=== PATIENT | female | born 1995 | race Caucasian/White ===

== ENCOUNTER 2017-11-02 22:16 | Outpatient (CLI) | payer OTHER ==
[2017-11-02 23:01] LABS: AMORPHOUS SEDIMENT,URINE TRACE /HPF; APPEARANCE,URINE SLIGHTLY-CLOUDY; BILIRUBIN,URINE NEGATIVE (NEGATIVE); GLUCOSE, URINE 150 mg/dL (NEGATIVE); KETONES,URINE NEGATIVE (NEGATIVE); LEUKOCYTE ESTERASE,URINE TRACE (NEGATIVE); NITRITE,URINE NEGATIVE (NEGATIVE); PROTEIN,URINE NEGATIVE (NEGATIVE); URINE SPECIFIC GRAVITY 1.011
[2017-11-02 23:07] LABS: URINE BARBITURATES SCREEN NEGATIVE; URINE METHADONE SCREEN NEGATIVE; URINE OPIATES LOW NEGATIVE; URINE PHENCYCLIDINE SCREEN NEGATIVE
--- NOTE | 2017-11-03 00:26 | Non Stress Test Report ---
Non Stress Test Datetime Report Generated by CPN: 11/03/2017 00:26 DEMOGRAPHIC Test Number: 1 EGA NST: 32.5 INDICATION Indication for Study: Ordered by Provider URINE RESULTS Urine Protein, NST: Negative Urine Ketones - NST: Negative Urine Glucose - NST: Positive Urine Blood - NST: Negative MONITORING Monitor Explained: Monitor Explained; Test Explained; Patient Verbalized Understanding Time on Monitor: 11/02/2017 22:34 Time off Monitor: 11/03/2017 00:09 NST Duration: 95 NST INTERVENTIONS NST Interventions: PO Hydration; Reposition Patient Physician Notified NST: Dr. Denny BABY A: [id number] BABY A Movement : Present Contraction Frequency : none FHR Baseline : 140 Accelerations : Prolonged Decelerations : None Variability : Moderate 6-25bpm NST Review: Meets Criteria for Reactive NST NST Review and Verified By : Krzysztof Laguerre RN NST Results: Reactive NST REPORT Report Trigger: Send Report
== END 2017-11-03 00:17 | disposition home or self-care (01) ==
LOC: LC 22:16
PROVIDERS: ATTEND Obstetrics & Gynecology Gynecology
PROC: 4A1HXCZ Monitoring of Products of Conception, Cardiac Rate, External Approach (ICD-10-PCS; principal; 2017-11-02)
DX: O76 Abnormality in fetal heart rate and rhythm complicating labor and delivery (principal); O99.89 Other specified diseases and conditions complicating pregnancy, childbirth and the puerperium; H53.8 Other visual disturbances; R51 Headache; Z3A.32 32 weeks gestation of pregnancy
CPT/HCPCS: 59025; 80307; 81001; 82962

== ENCOUNTER 2017-11-05 13:42 | Outpatient (CLI) | payer OTHER ==
[2017-11-05 14:18] LABS: APPEARANCE,URINE SLIGHTLY-CLOUDY; BILIRUBIN,URINE NEGATIVE (NEGATIVE); GLUCOSE, URINE NEGATIVE (NEGATIVE); KETONES,URINE NEGATIVE (NEGATIVE); LEUKOCYTE ESTERASE,URINE TRACE (NEGATIVE); NITRITE,URINE NEGATIVE (NEGATIVE); PROTEIN,URINE NEGATIVE (NEGATIVE); URINE SPECIFIC GRAVITY 1.009; UROBILINOGEN,URINE NEGATIVE mg/dL (<2.0)
[2017-11-05 14:28] LABS: AMNISURE (ROM) NEGATIVE (NEGATIVE)
[2017-11-05 14:36] LABS: URINE BARBITURATES SCREEN NEGATIVE; URINE METHADONE SCREEN NEGATIVE; URINE OPIATES LOW NEGATIVE; URINE PHENCYCLIDINE SCREEN NEGATIVE
--- NOTE | 2017-11-05 15:08 | Non Stress Test Report ---
Non Stress Test Datetime Report Generated by CPN: 11/05/2017 15:07 DEMOGRAPHIC EGA NST: 33.1 INDICATION Indication for Study: Ordered by Provider MONITORING Monitor Explained: Monitor Explained; Test Explained; Patient Verbalized Understanding Time on Monitor: 11/05/2017 13:58 Time off Monitor: 11/05/2017 14:47 NST Duration: 49 NST INTERVENTIONS NST Interventions: None Physician Notified NST: Dr Joaquin BABY A: [id number] BABY A Movement : Present Contraction Frequency : denies FHR Baseline : 145 Accelerations : 15X15 Decelerations : None Variability : Moderate 6-25bpm NST Review: Meets Criteria for Reactive NST NST Review and Verified By : Vika Rawls RN NST Results: Reactive NST REPORT Report Trigger: Send Report
== END 2017-11-05 14:53 | disposition home or self-care (01) ==
LOC: LC 13:42
PROVIDERS: ATTEND Obstetrics & Gynecology
PROC: 4A1HXCZ Monitoring of Products of Conception, Cardiac Rate, External Approach (ICD-10-PCS; principal; 2017-11-05)
DX: O47.03 False labor before 37 completed weeks of gestation, third trimester (principal); Z3A.33 33 weeks gestation of pregnancy
CPT/HCPCS: 80307; 81001; 84112

== ENCOUNTER 2017-11-08 21:11 | Observation (INO) | payer OTHER ==
[2017-11-08 21:55] LABS: AMORPHOUS SEDIMENT,URINE TRACE /HPF; APPEARANCE,URINE SLIGHTLY-CLOUDY; BILIRUBIN,URINE NEGATIVE (NEGATIVE); GLUCOSE, URINE NEGATIVE (NEGATIVE); KETONES,URINE 20 mg/dL (NEGATIVE); LEUKOCYTE ESTERASE,URINE MODERATE (NEGATIVE); NITRITE,URINE NEGATIVE (NEGATIVE); PROTEIN,URINE NEGATIVE (NEGATIVE); URINE SPECIFIC GRAVITY 1.011
[2017-11-08 22:07] LABS: URINE BARBITURATES SCREEN NEGATIVE; URINE METHADONE SCREEN NEGATIVE; URINE OPIATES LOW NEGATIVE; URINE PHENCYCLIDINE SCREEN NEGATIVE
[2017-11-08] MEDS: RINGERS SOLUTION,LACTATED 1,000 ML IV PRN ×2 (22:33→22:34)
[2017-11-08] MEDS ORDERED: PENICILLIN G-K 5 MILLION UNIT VIAL ONE (22:52)
[2017-11-08] MEDS ORDERED: BETAMET ACET/BETAMET NA INJ 6 MG/1 ML ONE (22:52)
[2017-11-08] MEDS ORDERED: PENICILLIN G-K 5 MILLION UNIT VIAL IV ONE (23:00)
[2017-11-08 23:09] LABS: ABSOLUTE EOSINOPHILS # (AUTO) 0.1 10^3/uL (0.0-0.6); ABSOLUTE LYMPHOCYTES (AUTO) 1.8 10^3/uL (0.5-4.7); ABSOLUTE MONOCYTES (AUTO) 0.5 10^3/uL (0.1-1.4); ABSOLUTE NEUT (AUTO) 10.5 10^3/uL (1.7-8.2); BASOPHILS % (AUTO) 0.2 % (0-2); EOSINOPHILS % (AUTO) 0.4 % (0-6); HEMATOCRIT 27.9 % (36.0-47.0); HEMOGLOBIN 9.4 g/dL (12.0-15.5); HGB HCT DIFFERENCE 0.3; LYMPHOCYTES % (AUTO) 13.9 % (13-45); MEAN CORPUSCULAR HEMOGLOBIN 27.6 pg (27.0-33.4); MEAN CORPUSCULAR HGB CONC 33.8 g/dL (32.0-36.0); MEAN CORPUSCULAR VOLUME 82 fl (80-97); MONOCYTES % (AUTO) 4.2 % (3-13); RED BLOOD COUNT 3.41 10^6/uL (3.72-5.28); RED CELL DISTRIBUTION WIDTH 14.7 % (11.5-14.0); SEGMENTED NEUTROPHILS % (AUTO) 81.3 % (42-78); WHITE BLOOD COUNT 12.9 10^3/uL (4.0-10.5)
[2017-11-08] MEDS ORDERED: PENICILLIN G-K 5 MILLION UNIT VIAL IV PRN ×2 (23:29→23:30)
[2017-11-09] MEDS ORDERED: MAGNESIUM SULFATE 4 GM/100 ML RTUPB IV ONE (00:37)
[2017-11-09] MEDS ORDERED: MAGNESIUM SULFATE 20 GM/500 ML RTUINJ IV PRN (00:44)
[2017-11-09] MEDS ORDERED: PENICILLIN G-K 5 MILLION UNIT VIAL ONE ×2 (02:56→06:46)
[2017-11-09] MEDS ORDERED: PENICILLIN G-K 5 MILLION UNIT VIAL IV SCH (03:00)
[2017-11-09] MEDS ORDERED: MAG HYDROX/AL HYDROX/SIMETH SUSP 30 ML UDCUP ONE (04:05)
[2017-11-09 04:13] LABS: AMNISURE (ROM) NEGATIVE (NEGATIVE)
[2017-11-09] MEDS: RINGERS SOLUTION,LACTATED 1,000 ML IV PRN (05:01)
[2017-11-09] MEDS: BETAMET ACET/BETAMET NA INJ 6 MG/1 ML IM SCH ×2 (07:00→23:18)
--- NOTE | 2017-11-09 08:43 | Admission Physical ---
Datetime Report Generated by CPN: 11/09/2017 08:42 CURRENT ADMISSION Chief Complaint: Uterine Contractions Indication for Induction: Not Applicable Indication for Induction: , Intrauterine Admit Plan: Initiate Labor Protocol; Observation/Evaluation ALLERGIES Medication Allergies: No Medication Allergies: No Known Allergies (11/08/2017) Medication Allergies: No Known Allergies (11/02/2017) Latex: No Latex Allergies Food Allergies: none Environmental Allergies: none OBSTETRICAL HISTORY EDC: 12/23/2017 00:00 : 4 Para: 2 Term: 1 : 1 SAB: 1 IAB: 0 Ectopic: 0 Livin Cesareans: 0 VBACs: 0 Multiple Births: 0 Gestational Diabetes: Yes Rh Sensitization: No Incompetent Cervix: No TALA: No Infertility: No ART Treatment: No Uterine Anomaly: No IUGR: No Hx Previous C/S: No Macrosomia: No Hx Loss/Stillborn: No PIH: No Hx : No Placenta Previa/Abruption: No Depression/PP Depression: No PTL/PROM: Yes Post Hemorrhage: No Current Procedures: Ultrasound Obstetrical History Comments: G1-09/01/13 @38wks female 6lbs 7oz G2-01/01/15 @ 35wks female 6lbs 6oz PTL, heavy bleeding G3-12/2016 SAB @ 8 wks G4-Current GDM on glyburide takes P-17 injections (Annotations: Data stored by N on behalf of user) SEE RECORDS Alcohol: No Marijuana : No Cocaine: No Other Illicit Drugs: No Cigarettes: Never Smoker. 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 Surgery: No Heart Disease: No Hosp/Surgery: Yes Autoimmune Disorder: No Anesthetic Complications: No Kidney Disease: No Abnormal Pap Smear: Yes Neuro/Epilepsy: No Psychiatric Disorders: No Other Medical Diseases: No Hepatitis/Liver Disease: No Significant Family History: No Varicosities/Phlebitis: No Trauma/Violence : No Thyroid Dysfunction: Yes Medical History Comments: Gallbladder-2013; Childbirth x 2; GDM on glyburide; Abnormal pap-LGSIL; Low TSH-sent to endocrinology for evaluation INFECTIOUS HISTORY Gonorrhea: No Genital Herpes: Yes Chlamydia: No Tuberculosis: No Syphilis: No Hepatitis: No HIV/AIDS Exposure: No Rash or Viral Illness: No HPV: Yes Infectious History Comments: Abnormal pap-LGSIL; 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 PHYSICAL EXAM General: Normal HEENT: Normal Neurologic: Normal Thyroid: Normal Heart: Normal Lungs: Normal Breast: Deferred Back: Normal Abdomen: Normal Genitourinary Exam: Normal Extremities: Normal DTRs: Normal Pelvic Type: Adequate Physical Exam Comments: 1 cm thick VAGINAL EXAM Dilatation: 1 Effacement: 25% Station: -2 MEMBRANES Membranes: Intact FETUS A EGA: 33.4 Monitoring: External US Decelerations: None Admit Comment: pt presented with irregular contraction.. History of SROM at 35 weeks with pitocin augmentation and is getting 17P? pt also has a history of delivering at 38 weeks. Pt on glyburide but is not well controlled. PLANS FOR LABOR AND DELIVERY Labor and Delivery: None Pain Management: Epidural Feeding Preference: Breast Circumcision: Yes INFORMED CONSENT Signature: with User ID: [email or web address]
[2017-11-09] MEDS ORDERED: GLYBURIDE 5 MG TABLET ONE (20:13)
[2017-11-09] MEDS ORDERED: GLYBURIDE 2.5 MG TABLET PO ONE (21:00)
[2017-11-09 22:26] LABS: AMNISURE (ROM) NEGATIVE (NEGATIVE)
--- NOTE | 2017-11-09 22:44 | L&D Progress Notes ---
PROGRESS NOTES Datetime Report Generated by CPN: 11/09/2017 22:44 PROGRESS NOTE Impression: Reactive Non Stress Test Procedures: Sterile Speculum Exam Plan: Continue Present Management Informed Consent Obtained: Risks, Benefits and Alternatives Discussed Vital Signs : Reviewed Comment: this am at 0300. THis was minimal change from . Pt was admitted last evening - [facility] [place] for neuroprotection and BMZ. Upon my arrival this am - uterus quiesent and magnesium stopped, PCN stopped and await BMZ complete. Approx 1 hour ago - pt reported a gush and Amnisure done - appeared to urine. Amnsiure is negative. Amnisure also negative at 0300. Pt reporting another gush. Will perform fern and amnisure again then perform US to verify JAYDA/SDP. NO e/o labor at this time. Patient is aware that plan was to discharge her at 2300 when last BMZ was due. Pt [place] - pt advised that would not recommend travel since she was admitted for ctx. VAGINAL EXAM Dilatation: 1 Effacement: 25% Station: -2 MEMBRANES Membranes: Intact SIGNATURE SIGNATURE: [id number];[id number] SIGNATURE: [id number] SIGNATURE: [id number] Signature: with User ID: [email or web address]
[2017-11-09] MEDS ORDERED: BETAMET ACET/BETAMET NA INJ 6 MG/1 ML ONE (22:54)
[2017-11-09 23:36] LABS: AMNISURE (ROM) NEGATIVE (NEGATIVE)
--- NOTE | 2017-11-10 00:06 | RADIOLOGY REPORT (SQ) ---
EXAM DESCRIPTION: U/S OB LIMITED CLINICAL HISTORY: 22 years, Female, JAYDA/SDP, presentation COMPARISON: None. LIMITATIONS/technique: Targeted exam for for requested obstetrical parameters. FINDINGS: JAYDA: 7.3 cm. Clear fluid. Deepest pocket measures 4.5 cm. position: Vertex. heart rate: 155 bpm. IMPRESSION: Targeted exam for for requested obstetrical parameters. 2011 [facility] [employer]- All Rights Reserved
--- NOTE | 2017-11-10 00:14 | PDOC DISCHARGE SUMMARY ---
General - Admit/Disc Date/PCP Admission Date/Primary Care Provider: 11/08/17 22:44 KACEY WU MD Discharge Date: 11/09/17 - Discharge Diagnosis (1) contractions Is this a current diagnosis for this admission?: Yes Summary: Patient came in last evening for contractions at 33wks and cvx -3 and then several hours later /-2. Patient thought she broke her water on several occasions. 3 amnisures and Fern as well as US done - no e/o SROM. No pooling or valsalva on exam. No contractions since 0800 and magneiusm and pitocin and PCN discontinued this am due to contractions ceased. Patient only had a rare ctx since that time. - Additional Information Home Medications: Glyburide 2.5 mg PO BID 11/02/17 Vit/Iron Fum/Folic AC [ Tablet] 1 each PO DAILY 11/02/17 History of Present Illness Patient complains of: contractions. History of Present Illness: MRACIO GARCIA is a 22 year old female came in last evening for contractions at 33wks and cvx -3 and then several hours later /-2. Patient thought she broke her water on several occasions. 3 amnisures and Fern as well as US done - no e/o SROM. No pooling or valsalva on exam. No contractions since 0800 and magneiusm and pitocin and PCN discontinued this am due to contractions ceased. Patient only had a rare ctx since that time. Hospital Course Hospital Course: Patient came in last evening for contractions at 33wks and cvx -3 and then several hours later /-2. Patient thought she broke her water on several occasions. 3 amnisures and Fern as well as US done - no e/o SROM. No pooling or valsalva on exam. No contractions since 0800 and magneiusm and pitocin and PCN discontinued this am due to contractions ceased. Patient only had a rare ctx since that time. Physical Exam - Physical Exam Vital Signs: Intake & Output 11/08/17 11/09/17 11/10/17 06:59 06:59 06:59 Weight 76.05 kg General appearance: PRESENT: no acute distress, well-developed, well-nourished Head exam: PRESENT: atraumatic, normocephalic Respiratory exam: PRESENT: clear to auscultation brandie, symmetrical, unlabored Cardiovascular exam: PRESENT: RRR. ABSENT: diastolic murmur, rubs, systolic murmur Pulses: PRESENT: normal dorsalis pedis pul, +2 pedal pulses bilateral Vascular exam: PRESENT: normal capillary refill GI/Abdominal exam: PRESENT: normal bowel sounds, soft. ABSENT: rebound, tenderness Rectal exam: PRESENT: deferred Extremities exam: PRESENT: full ROM. ABSENT: calf tenderness, clubbing, pedal edema Neurological exam: PRESENT: alert, awake, oriented to person, oriented to place , oriented to time, oriented to situation, CN II-XII grossly intact. ABSENT: motor sensory deficit Psychiatric exam: PRESENT: appropriate affect, normal mood. ABSENT: homicidal ideation, suicidal ideation Skin exam: PRESENT: dry, intact, warm. ABSENT: cyanosis, rash Result Laboratory Results: 11/08/17 22:53 11/08/17 22:53 Blood Type O POSITIVE Antibody Screen NEGATIVE Status: Image reviewed by me Plan Discharge Plan: Discharge to home. Time Spent: Greater than 30 Minutes
== END 2017-11-10 00:13 | disposition home or self-care (01) ==
LOC: LC 21:11 → LR 22:44
PROVIDERS: ADMIT Obstetrics & Gynecology Gynecology; ATTEND Obstetrics & Gynecology Gynecology
PROC: 4A0HXCZ Measurement of Products of Conception, Cardiac Rate, External Approach (ICD-10-PCS; principal; 2017-11-10)
PROC: 3E0233Z Introduction of Anti-inflammatory into Muscle, Percutaneous Approach (ICD-10-PCS; 2017-11-10)
DX: O60.03 Preterm labor without delivery, third trimester (principal); O24.415 Gestational diabetes mellitus in pregnancy, controlled by oral hypoglycemic drugs; O09.213 Supervision of pregnancy with history of pre-term labor, third trimester; Z3A.33 33 weeks gestation of pregnancy; Z86.19 Personal history of other infectious and parasitic diseases
CPT/HCPCS: 59025; 96372 ×2; 84112; 86900; 86901; 36415; 86850; 82962 ×2; 85025; 86592; 81001; 87081; 80307; 87491; 87591; 76815; Q0114; J3475; J3490 ×2; J2540 ×2; J0702

== ENCOUNTER 2017-11-23 15:09 | Outpatient (CLI) | payer OTHER ==
--- NOTE | 2017-11-23 15:31 | Non Stress Test Report ---
Non Stress Test Datetime Report Generated by CPN: 11/23/2017 15:30 DEMOGRAPHIC EGA NST: 33.5 INDICATION Indication for Study: Ordered by Provider MONITORING Monitor Explained: Monitor Explained; Test Explained; Patient Verbalized Understanding Time on Monitor: 11/09/2017 19:50 Time off Monitor: 11/09/2017 23:13 NST Duration: 203 NST INTERVENTIONS NST Interventions: PO Hydration; IV Fluids Physician Notified NST: Dr. Cruz BABY A: [id number] BABY A Movement : Present Contraction Frequency : Occasional FHR Baseline : 145 Accelerations : 15X15 Decelerations : None Variability : Moderate 6-25bpm NST Review: Meets Criteria for Reactive NST NST Review and Verified By : Liang Odonnell RN NST Results: Reactive NST REPORT Report Trigger: Send Report
--- NOTE | 2017-11-23 15:51 | Non Stress Test Report ---
Non Stress Test Datetime Report Generated by CPN: 11/23/2017 15:50 DEMOGRAPHIC EGA NST: 35.5 INDICATION Indication for Study: Diabetes Mellitus MONITORING Monitor Explained: Monitor Explained; Test Explained; Patient Verbalized Understanding Time on Monitor: 11/23/2017 15:29 Time off Monitor: 11/23/2017 15:49 NST Duration: 20 NST INTERVENTIONS NST Interventions: PO Hydration; Reposition Patient Physician Notified NST: K Fischer CNM BABY A Movement : Present Contraction Frequency : x0 FHR Baseline : 140 Accelerations : 15X15 Decelerations : None Variability : Moderate 6-25bpm NST Review: Meets Criteria for Reactive NST NST Review and Verified By : Katerine Renee RNC NST Results: Reactive NST REPORT Report Trigger: Send Report
== END 2017-11-23 15:56 | disposition home or self-care (01) ==
LOC: LC 15:09
PROVIDERS: ATTEND Obstetrics & Gynecology
PROC: 4A1HXCZ Monitoring of Products of Conception, Cardiac Rate, External Approach (ICD-10-PCS; principal; 2017-11-23)
DX: O24.419 Gestational diabetes mellitus in pregnancy, unspecified control (principal); Z3A.35 35 weeks gestation of pregnancy
CPT/HCPCS: 59025

== ENCOUNTER 2017-12-03 13:47 | Outpatient (CLI) | payer OTHER ==
[2017-12-03 14:26] LABS: APPEARANCE,URINE SLIGHTLY-CLOUDY; BILIRUBIN,URINE NEGATIVE (NEGATIVE); COLOR,URINE YELLOW; GLUCOSE, URINE NEGATIVE (NEGATIVE); KETONES,URINE NEGATIVE (NEGATIVE); LEUKOCYTE ESTERASE,URINE SMALL (NEGATIVE); NITRITE,URINE NEGATIVE (NEGATIVE); PROTEIN,URINE NEGATIVE (NEGATIVE); URINE SPECIFIC GRAVITY 1.004; UROBILINOGEN,URINE NEGATIVE mg/dL (<2.0)
[2017-12-03 14:39] LABS: URINE AMPHETAMINES SCREEN NEGATIVE; URINE BARBITURATES SCREEN NEGATIVE; URINE BENZODIAZEPINES SCREEN NEGATIVE; URINE COCAINE SCREEN NEGATIVE; URINE MARIJUANA (THC) SCREEN NEGATIVE; URINE METHADONE SCREEN NEGATIVE; URINE PHENCYCLIDINE SCREEN NEGATIVE
[2017-12-03 14:48] LABS: BACTERIA (WET MOUNT) 4+ BACTERIA SEEN; EPITHELIALS (WET MOUNT) 4+ EPITHELIALS SEEN; RBCS (WET MOUNT) FEW RBCS SEEN; T.VAGINALIS (WET MOUNT) NO TRICHOMONAS SEEN; WBCS (WET MOUNT) 4+ WBCS SEEN; YEAST (WET MOUNT) YEAST SEEN
--- NOTE | 2017-12-03 15:01 | Non Stress Test Report ---
Non Stress Test Datetime Report Generated by CPN: 12/03/2017 15:01 DEMOGRAPHIC EGA NST: 37.1 INDICATION Indication for Study: Ordered by Provider MONITORING Monitor Explained: Monitor Explained; Test Explained; Patient Verbalized Understanding Time on Monitor: 12/03/2017 14:06 Time off Monitor: 12/03/2017 14:58 NST Duration: 52 NST INTERVENTIONS NST Interventions: PO Hydration; Reposition Patient Physician Notified NST: Dr. Butler BABY A: [id number] BABY A Movement : Present Contraction Frequency : occassional FHR Baseline : 150 Accelerations : 15X15 Decelerations : None Variability : Moderate 6-25bpm NST Review: Meets Criteria for Reactive NST NST Review and Verified By : Katerine Renee RNC NST Results: Reactive NST REPORT Report Trigger: Send Report
== END 2017-12-03 15:13 | disposition home or self-care (01) ==
LOC: LC 13:47
PROVIDERS: ATTEND Specialist
PROC: 4A1HXCZ Monitoring of Products of Conception, Cardiac Rate, External Approach (ICD-10-PCS; principal; 2017-12-03)
DX: O98.813 Other maternal infectious and parasitic diseases complicating pregnancy, third trimester (principal); B37.9 Candidiasis, unspecified; Z3A.37 37 weeks gestation of pregnancy
CPT/HCPCS: 59025; 80307; 81001; 87210

== ENCOUNTER 2017-12-07 03:03 | Inpatient (IN) | payer OTHER ==
[2017-12-07 03:29] LABS: APPEARANCE,URINE CLEAR; BILIRUBIN,URINE NEGATIVE (NEGATIVE); COLOR,URINE YELLOW; GLUCOSE, URINE NEGATIVE (NEGATIVE); KETONES,URINE NEGATIVE (NEGATIVE); LEUKOCYTE ESTERASE,URINE NEGATIVE (NEGATIVE); NITRITE,URINE NEGATIVE (NEGATIVE); PROTEIN,URINE NEGATIVE (NEGATIVE); URINE SPECIFIC GRAVITY 1.006; UROBILINOGEN,URINE NEGATIVE mg/dL (<2.0)
[2017-12-07] MEDS ORDERED: RINGERS SOLUTION,LACTATED 1,000 ML IV ONE (03:31)
[2017-12-07] MEDS ORDERED: RINGERS SOLUTION,LACTATED 1,000 ML IV PRN (03:31)
[2017-12-07 04:09] LABS: URINE AMPHETAMINES SCREEN NEGATIVE; URINE BARBITURATES SCREEN NEGATIVE; URINE BENZODIAZEPINES SCREEN NEGATIVE; URINE COCAINE SCREEN NEGATIVE; URINE MARIJUANA (THC) SCREEN NEGATIVE; URINE METHADONE SCREEN NEGATIVE; URINE PHENCYCLIDINE SCREEN NEGATIVE
[2017-12-07] MEDS ORDERED: FENTANYL/BUPIVACAINE/NS/PF 200 MCG/100 ML RTUINJ EPI ONE (04:17)
[2017-12-07] MEDS ORDERED: BUPIVACAINE HCL 0.25 % INJ/PF (2.5 MG/1 ML) 30 ML VIAL ONE (04:17)
[2017-12-07] MEDS ORDERED: EPHEDRINE SULFATE INJ 50 MG/1 ML AMPULE ONE (04:17)
[2017-12-07] MEDS ORDERED: LIDOCAINE 1% INJ-PF (10 MG/ML) 30 ML SDV ONE (04:18)
[2017-12-07] MEDS ORDERED: OXYTOCIN/NORMAL SALINE 20 UNIT/1,000 ML RTUINJ ONE (04:18)
[2017-12-07] MEDS ORDERED: MISOPROSTOL 0.2 MG TABLET ONE (04:18)
[2017-12-07 04:55] LABS: PLATELET COUNT 185 10^3/uL (150-450)
[2017-12-07] MEDS ORDERED: FENTANYL/BUPIVACAINE/NS/PF 200 MCG/100 ML RTUINJ EPI PRN (04:58)
[2017-12-07] MEDS ORDERED: BUPIVACAINE HCL 0.25 % INJ/PF (2.5 MG/1 ML) 30 ML VIAL INFIL ONE (04:58)
[2017-12-07] MEDS ORDERED: BENZOIN/ALOE VERA/STORAX/TOLU TINCTURE 60 ML TP PRN (04:58)
[2017-12-07] MEDS ORDERED: EPHEDRINE SULFATE INJ 50 MG/1 ML AMPULE IV PRN (04:58)
[2017-12-07 06:47] LABS: ABSOLUTE EOSINOPHILS # (AUTO) 0.1 10^3/uL (0.0-0.6); ABSOLUTE LYMPHOCYTES (AUTO) 1.7 10^3/uL (0.5-4.7); ABSOLUTE MONOCYTES (AUTO) 0.5 10^3/uL (0.1-1.4); ABSOLUTE NEUT (AUTO) 8.4 10^3/uL (1.7-8.2); BASOPHILS % (AUTO) 0.1 % (0-2); EOSINOPHILS % (AUTO) 0.8 % (0-6); HEMATOCRIT 28.4 % (36.0-47.0); HEMOGLOBIN 9.3 g/dL (12.0-15.5); LYMPHOCYTES % (AUTO) 16.3 % (13-45); MEAN CORPUSCULAR HEMOGLOBIN 25.7 pg (27.0-33.4); MEAN CORPUSCULAR HGB CONC 32.8 g/dL (32.0-36.0); MONOCYTES % (AUTO) 4.7 % (3-13); PLATELET COUNT 165 10^3/uL (150-450); RED BLOOD COUNT 3.63 10^6/uL (3.72-5.28); RED CELL DISTRIBUTION WIDTH 16.2 % (11.5-14.0); SEGMENTED NEUTROPHILS % (AUTO) 78.1 % (42-78); TOTAL CELLS COUNTED % (AUTO) 100 %; WHITE BLOOD COUNT 10.7 10^3/uL (4.0-10.5)
[2017-12-07 06:59] LABS: MEAN CORPUSCULAR VOLUME 78 fl (80-97)
--- NOTE | 2017-12-07 07:50 | L&D Progress Notes ---
PROGRESS NOTES Datetime Report Generated by CPN: 12/07/2017 07:49 PROGRESS NOTE Impression: Normal Progression of Labor; Reassuring Heart Rate Procedures: Artificial ROM; Sterile Vag Exam Plan: Continue Present Management Vital Signs : Reviewed Comment: Comfortable with epidural SVE, AROM, clear Will start pitocin Anticipate VAGINAL EXAM Dilatation: 8 Effacement: 90 Station: 0 Contractions: 2-4 MEMBRANES Membranes: Ruptured Amniotic Fluid Color: Clear FETUS A FHR - Baseline: 135 Monitoring: External US Variability: Moderate 6-25bpm Accelerations: 15X15 Decelerations: None FHR Category: Category I Estimated Weight (gm): 3800 SIGNATURE SIGNATURE: [id number];14,[id number] SIGNATURE: [id number];10,[id number] SIGNATURE: 10,[id number];14,[id number] SIGNATURE: 14,[id number];10,[id number] Assignment: Radha Butler MD Signature: with User ID: [email or web address] : with User ID: Elina
[2017-12-07] MEDS ORDERED: ACETAMINOPHEN WITH CODEINE #3 TABLET PO PRN ×2 (09:54)
[2017-12-07] MEDS ORDERED: OXYTOCIN/NORMAL SALINE 20 UNIT/1,000 ML RTUINJ IV PRN (09:54)
[2017-12-07] MEDS ORDERED: BENZOCAINE/MENTHOL AEROSOL SPRAY 56 ML TOP PRN (09:54)
[2017-12-07] MEDS ORDERED: MEASLES,MUMPS&RUBELLA VACC/PF 0.5 ML VIAL SUBCUT PRN (09:54)
[2017-12-07] MEDS ORDERED: DIPH/PERTUSS(ACELL)/TETANUS VAC/PF 0.5 ML SYR (>=10YO) IM PRN (09:54)
[2017-12-07] MEDS ORDERED: DIBUCAINE 1% OINTMENT 28 GM TP PRN (09:54)
[2017-12-07] MEDS ORDERED: ZOLPIDEM TARTRATE 5 MG TABLET PO PRN (09:54)
--- NOTE | 2017-12-07 10:04 | Warning Signs in Babies ---
VOD Warning Signs Datetime Report Generated by [facility]: 12/07/2017 10:04 VOD#608 -Warning Signs in Babies: Needs to be viewed. (12/07/2017 09:55:Laurence Nuñez RN)
--- NOTE | 2017-12-07 11:54 | Admission Physical ---
Datetime Report Generated by CPN: 12/07/2017 11:53 CURRENT ADMISSION Chief Complaint: Uterine Contractions Indication for Induction: Not Applicable Indication for Induction: , Intrauterine Admit Plan: Initiate Labor Protocol; Observation/Evaluation ALLERGIES Medication Allergies: No Medication Allergies: No Known Allergies (11/08/2017) Medication Allergies: No Known Allergies (11/02/2017) Latex: No Latex Allergies Food Allergies: none Environmental Allergies: none OBSTETRICAL HISTORY EDC: 12/23/2017 00:00 : 4 Para: 2 Term: 1 : 1 SAB: 1 IAB: 0 Ectopic: 0 Livin Cesareans: 0 VBACs: 0 Multiple Births: 0 Gestational Diabetes: Yes Rh Sensitization: No Incompetent Cervix: No TALA: No Infertility: No ART Treatment: No Uterine Anomaly: No IUGR: No Hx Previous C/S: No Macrosomia: No Hx Loss/Stillborn: No PIH: No Hx : No Placenta Previa/Abruption: No Depression/PP Depression: No PTL/PROM: Yes Post Hemorrhage: No Current Procedures: Ultrasound Obstetrical History Comments: G1-09/01/13 @38wks female 6lbs 7oz G2-01/01/15 @ 35wks female 6lbs 6oz PTL, heavy bleeding G3-12/2016 SAB @ 8 wks G4-Current GDM on glyburide, polyhydramnios takes P-17 injections SEE RECORDS Alcohol: No Marijuana : No Cocaine: No Other Illicit Drugs: No Cigarettes: Never Smoker. 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 Surgery: No Heart Disease: No Hosp/Surgery: Yes Autoimmune Disorder: No Anesthetic Complications: No Kidney Disease: No Abnormal Pap Smear: Yes Neuro/Epilepsy: No Psychiatric Disorders: No Other Medical Diseases: No Hepatitis/Liver Disease: No Significant Family History: No Varicosities/Phlebitis: No Trauma/Violence : No Thyroid Dysfunction: Yes Medical History Comments: Gallbladder-2012; Childbirth x 2; GDM on glyburide; Abnormal pap-LGSIL; Low TSH-sent to endocrinology for evaluation INFECTIOUS HISTORY Gonorrhea: No Genital Herpes: Yes Chlamydia: No Tuberculosis: No Syphilis: No Hepatitis: No HIV/AIDS Exposure: No Rash or Viral Illness: No HPV: Yes Infectious History Comments: Abnormal pap-LGSIL; 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 PHYSICAL EXAM General: Normal HEENT: Normal Neurologic: Normal Thyroid: Normal Heart: Normal Lungs: Normal Breast: Deferred Back: Normal Abdomen: Normal Genitourinary Exam: Normal Extremities: Normal DTRs: Normal Pelvic Type: Adequate Physical Exam Comments: 1 cm thick VAGINAL EXAM Dilatation: 8 Dilatation: 1 Effacement: 90 Effacement: 25% Station: 0 Station: -2 Contraction Comments: 2-4 MEMBRANES Membranes: Ruptured Membranes: Intact Amniotic Fluid Color: Clear FETUS A EGA: 33.4 Monitoring: External US Decelerations: None Estimated Weight (gm): 3800 Admit Comment: pt presented with irregular contraction.. History of SROM at 35 weeks with pitocin augmentation and is getting 17P? pt also has a history of delivering at 38 weeks. Pt on glyburide but is not well controlled. PLANS FOR LABOR AND DELIVERY Labor and Delivery: None Pain Management: Epidural Feeding Preference: Breast Benefit of Breast Feed Discussed: Yes Circumcision: Yes INFORMED CONSENT Informed Consent Obtained: Risks, Benefits and Alternatives Discussed Signature: with User ID: [email or web address]
[2017-12-07] MEDS: IBUPROFEN 800 MG TABLET PO SCH ×2 (14:03→22:18)
[2017-12-07] MEDS: FERROUS SULFATE 325 MG TABLET PO SCH ×2 (15:25→18:09)
[2017-12-07] MEDS: SENNOSIDES/DOCUSATE 8.6-50 MG 1 EACH TABLET PO SCH (15:25)
[2017-12-07] MEDS: DOCUSATE SODIUM 100 MG CAPSULE PO SCH ×2 (15:25→18:10)
[2017-12-07] MEDS: PRENATAL VITAMIN W DHA CAPSULE PO SCH (15:25)
[2017-12-08] MEDS: IBUPROFEN 800 MG TABLET PO SCH ×2 (05:51→14:01)
[2017-12-08 08:05] LABS: HEMATOCRIT 26.9 % (36.0-47.0); MEAN CORPUSCULAR HEMOGLOBIN 25.9 pg (27.0-33.4); MEAN CORPUSCULAR HGB CONC 33.4 g/dL (32.0-36.0); MEAN CORPUSCULAR VOLUME 78 fl (80-97); PLATELET COUNT 137 10^3/uL (150-450); RED BLOOD COUNT 3.46 10^6/uL (3.72-5.28); WHITE BLOOD COUNT 10.5 10^3/uL (4.0-10.5)
[2017-12-08] MEDS: FERROUS SULFATE 325 MG TABLET PO SCH (09:39)
[2017-12-08] MEDS: SENNOSIDES/DOCUSATE 8.6-50 MG 1 EACH TABLET PO SCH (09:40)
[2017-12-08] MEDS: DOCUSATE SODIUM 100 MG CAPSULE PO SCH (09:40)
[2017-12-08] MEDS: PRENATAL VITAMIN W DHA CAPSULE PO SCH (09:41)
--- NOTE | 2017-12-08 12:00 | PDOC DISCHARGE SUMMARY ---
Discharge Summary (SDC) - Discharge Final Diagnosis: s/p normal vaginal delivery Condition: Good Prescriptions: Ibuprofen [Motrin 800 mg Tablet] 800 mg PO Q8 #60 tablet Referrals: MEME ZUNIGA MD [Primary Care Provider] - Discharge Diet: Regular Discharge Activity: Balance Activity w/Rest Home Care Assistance: None Needed Report the Following to Your Physician Immediately: Fever over 101 Degrees, Unusual Bleeding, Increased Vaginal Bleed, Large Clots, IV Site Infection Signs , Urinary Infection Signs
--- NOTE | 2017-12-08 12:03 | PDOC PROGRESS REPORT ---
Subjective-OB Subjective: Post Delivery Day: 22 year old. Denies any needs at this time. reports well, bleeding slowing, pain controlled wit current meds, tolerating diet. ready to go home today. Physical Exam (OB) Vital Signs: Temp Pulse Resp BP Pulse Ox 97.4 F 72 16 120/78 100 12/08/17 08:18 12/08/17 08:18 12/08/17 08:18 12/08/17 08:18 12/08/17 08:18 Intake & Output 12/07/17 12/08/17 12/09/17 06:59 06:59 06:59 Intake Total 240 Balance 240 Weight 81.647 kg - Abdomen Description: Soft, Round Fundal Description: Firm Fundal Height: u/u - u/2 - Abdominal Tenderness: Nontender - Extremities Lower extremities: Brianna's sign - neg Calf: Normal, Nontender Objective-Diagnostic Laboratory: 12/08/17 07:45 12/08/17 07:45 WBC 10.5 RBC 3.46 L Hgb 9.0 L Hct 26.9 L MCV 78 L MCH 25.9 L MCHC 33.4 RDW 16.0 H Plt Count 137 L Assessment and Plan(PN) - Assessment and Plan (1) Normal vaginal delivery Is this a current diagnosis for this admission?: Yes - Time Spent with Patient Time with patient: Less than 15 minutes - Disposition Anticipated Discharge: Home - today if baby discharged
[2017-12-08 15:14] VITALS: BP 114/74
--- NOTE | 2017-12-13 14:44 | Delivery Summary ---
Del Sum A-C Datetime Report Generated by CPN: 12/13/2017 14:44 DELIVERY PERSONNEL DELIVERY PERSONNEL: [id number] Delivery Doctor:: Meli Cage CNM Labor and Delivery Nurse:: Laurence Nuñez RNwind energy mechanic Nurse:: Lesa Farris RN Wood Planer/MANAGED CARE LIAISON: Samra Wilks, UTILIZATION MANAGEMENT NURSE Wood Planer/MANAGED CARE LIAISON: Viviana Honeycutt, Additional Personnel: : Kyara Monsivais RN MATERNAL INFORMATION Delivery Anesthesia: Epidural Medications After Delivery: Pitocin Bolus-Please Comment Meds After Delivery Comment: Pitocin 20 units in 1 L NS bolusing per order Estimated Blood Loss (ml): 250 Maternal Complications: None Provider Comments: of viable male infant, head, shoulders, and body delivered without difficulty, infant to maternal abdomen, infant with spontaneous respirations, cry with stimulation, cord clamped X2 and infant cut free after 2 min delay. Spontaneous delivery of placenta, appears intact, 3 VC, hemostasis acheived with external fundal massage and IV pitocin, mother and infant in stable condtion, routine pp care. LABOR SUMMARY EDC: 12/23/2017 00:00 No. Babies in Womb: 1 Attempted: No Labor Anesthesia: Epidural LABOR INFORMATION Reason for Induction: Not Applicable Onset of Labor: 12/07/2017 03:22 Complete Dilatation: 12/07/2017 09:29 Oxytocin: Augmentation Group B Beta Strep: negative Antibiotics # of Doses: 0 Antibiotics Time of Last Dose: n/a Name of Antibiotic Given: n/a Steroids Given: None Reason Steroids Not Administered: Not Applicable MEMBRANES Membranes Rupture Method: Artificial Rupture of Membranes: 12/07/2017 07:43 Length of Rupture (hr): 1.87 Amniotic Fluid Color: Clear Amniotic Fluid Amount: Large Amniotic Fluid Odor: Normal STAGES OF LABOR Stage 1 hr: 6 Stage 1 min: 7 Stage 2 hr: 0 Stage 2 min: 6 Stage 3 hr: 0 Stage 3 min: 3 Total Time in Labor hr: 6 Total Time in Labor min: 16 VAGINAL DELIVERY Episiotomy: None Laceration #1: Perineal Laceration Extension #1: First Degree Laceration Repair: Yes Laceration Repair Note: repaired with 2-0 chromic using epidural anesthesia in usual fashion. Sponge Count Correct: N/A Sharps Count Correct: N/A CSECTION DELIVERY Primary Indication: N/A Secondary Indication: N/A CSection Incidence: N/A Labor: N/A Elective: N/A CSection Incision: N/A BABY A INFORMATION Infant Delivery Date/Time: 12/07/2017 09:35 Method of Delivery: Vaginal Method of Delivery: Vaginal Born in Route : No : N/A Forceps: N/A Vacuum Extraction: N/A Shoulder Dystocia : No PRESENTATION/POSITION BABY A Presentation: Cephalic Presentation: Cephalic Presentation: Cephalic Presentation: Cephalic Presentation: Cephalic Cephalic Presentation: Vertex Vertex Position: Right Occipital Anterior Breech Presentation: N/A PLACENTA INFORMATION BABY A Placenta Delivery Time : 12/07/2017 09:38 Placenta Method of Delivery: Spontaneous Placenta Method of Delivery: Spontaneous Placenta Status: Delivered SCORES BABY A Heart Rate 1 min: >100 bpm Resp Effort 1 min: Slow, Irregular Reflex Irritability 1 min: Cough or Sneeze or Pulls Away Muscle Tone 1 min: Active Motion Color 1 min: Blue/Pale Resuscitation Effort 1 min: Tactile Stimulation SCORE 1 MIN: 7 Heart Rate 5 min: >100 bpm Resp Effort 5 min: Good Cry Reflex Irritability 5 min: Cough or Sneeze or Pulls Away Muscle Tone 5 min: Active Motion Color 5 min: Body Botines, Extremities Blue Resuscitation Effort 5 min: Tactile Stimulation SCORE 5 MIN: 9 INFANT INFORMATION BABY A Gestational Age at Delivery: 37.5 Gestational Status: Early Term- 37- 38.6 Weeks Infant Outcome : Liveborn Infant Condition : Stable Sex: Male Sex: Male IDENTIFICATION BABY A Verification Date/Time: 12/07/2017 09:51 ID Band Number: [id number] Mother's Name Verified: Yes RN Verifying : Delmar Nuñez, RN, R. Wlil, RN WEIGHT/LENGTH BABY A Infant Birthweight (gm): 3700 Weight (lb): 8 Infant Weight (oz): 3 Infant Length (in): 21.50 Length (cm): 54.61 CORD INFORMATION BABY A No. Cord Vessels: 3 Nuchal Cord : N/A Cord Blood Taken: Yes-For Eval (Mom's Blood Type - or O+) Suction: Mouth; Nose ASSESSMENT BABY A Complications: None Physical Findings at Delivery: Within Normal Limits Infant Respirations: Appears Normal Skin to Skin: Yes Skin to Skin: Yes Skin to Skin Time (min): 60 Branch Lending Manager/ALS Called : No Care By: Sonia MONSIVAIS RN Transferred To: Nursery BABY B INFORMATION : N/A SIGNATURES Assignment: Radha Butler MD Signature: with User ID: [email or web address] : with User ID: [email or web address]
== END 2017-12-08 16:10 | disposition home or self-care (01) | DRG 775 ==
LOC: LC 03:03 → LR 03:26 → 2N 11:50
PROVIDERS: ADMIT Obstetrics & Gynecology; ATTEND Obstetrics & Gynecology
PROC: 10E0XZZ Delivery of Products of Conception, External Approach (ICD-10-PCS; principal; 2017-12-07)
PROC: 0HQ9XZZ Repair Perineum Skin, External Approach (ICD-10-PCS; 2017-12-07)
DX: O24.425 Gestational diabetes mellitus in childbirth, controlled by oral hypoglycemic drugs (principal); O40.3XX0 Polyhydramnios, third trimester, not applicable or unspecified; O70.0 First degree perineal laceration during delivery; Z37.0 Single live birth; Z3A.37 37 weeks gestation of pregnancy
CPT/HCPCS: 36415; 80307; 81005; 82962; 85025; 85027; 85049; 86592; 86850; 86900; 86901; J2590; J3490